=== PATIENT | female | born 1985 | race Caucasian/White ===

== ENCOUNTER 2022-04-24 18:06 | Emergency (ER) | payer SELFPAY ==
[2022-04-24 18:10] VITALS: BP 154/95; PULSE 86; RESP 18; TEMP 36.7; O2SAT 98; BMI 23.6
--- NOTE | 2022-04-24 18:18 | XRR_ITS ---
PROCEDURE INFORMATION: Exam: XR Chest Exam date and time: 04/24/2022 6:42 PM Age: 37 years old Clinical indication: Shortness of breath and other: Recent bronchitis TECHNIQUE: Imaging protocol: Radiologic exam of the chest. Views: 2 views. COMPARISON: No relevant prior studies available. FINDINGS: Lungs: Unremarkable. No consolidation. Pleural spaces: Unremarkable. No pleural effusion. No pneumothorax. Heart/Mediastinum: Unremarkable. No cardiomegaly. Bones/joints: Unremarkable. XR/XR chest 2V* [id number] IMPRESSION: No acute findings.
[2022-04-24] MEDS: albuterol 2.5 mg/3 mL Neb INHALATION (19:37)
[2022-04-24 19:38] VITALS: PULSE 94; RESP 20; O2SAT 98
[2022-04-24] MEDS: ketorolac 60 mg/2 mL INJ IM (19:53)
--- NOTE | 2022-04-24 20:09 | W.ED.SOB ---
HPI - SOB/Dyspnea General: Chief Complaint: Shortness of Breath/Dyspnea Stated Complaint: SOB\Chemical Burn with Bleach Time Seen by Provider: 04/24/22 18:18 History of Present Illness: HPI Narrative: Patient is in today for shortness of breath and chest pain with deep inspiration. Patient states that last week she was cleaning with bleach and comet and started coughing significantly. She did seek evaluation at [facility] and was diagnosed with bronchitis. She was started on antibiotic, steroid, albuterol inhaler. She reports that she still feeling short of breath and like it is tight when she breathes. She denies any fever, chills, nausea, vomiting. She denies hemoptysis. She denies any possibility of Associated symptoms: Reports chest pain (With deep inspiration and cough); Deny abdominal pain, fever(s), lightheadedness, nausea, palpitations, syncope or vomiting Review of Systems Const: Denies: fever(s), chills or body aches Eyes: Denies: change in vision or blurry vision ENMT: Denies: throat pain Card: Reports: chest pain (With deep inspiration and cough); Denies: palpitations, irregular heart rhythm, lightheadedness or syncope Resp: Reports: dyspnea, non-productive cough and pain on inspiration GI: Denies: abdominal pain, nausea or vomiting : Denies: flank pain, difficulty voiding, dysuria, urinary frequency, urinary urgency or urinary hesitancy Musc: Denies: neck pain or back pain Neuro: Denies: headache(s), numbness in extremities or weakness in extremities Physical Exam Const: COMMON NORMALS: no acute distress, patient oriented x3 and alert GENERAL APPEARANCE: cooperative ORIENTATION/CONSCIOUSNESS: Yes awake, Yes oriented to person, Yes oriented to place and Yes oriented to time HENMT: COMMON NORMALS: EAC's normal EXTERNAL AUDITORY CANAL: EAC's normal TYMPANIC MEMBRANE: TM normal on the left, TM abnormal TM laterality: right and unable to visualize TM (Due to cerumen) MOUTH: Normal oral and palatal mucosa present THROAT: posterior oropharynx normal Eye: COMMON NORMALS: Equal, round and reactive pupils present, EOMs intact bilaterally and conjunctivae normal GENERAL EYE: appearance normal, both eyes and all related structures ALIGNMENT: Yes alignment normal CONJUNCTIVA: Yes conjunctivae normal SCLERA: sclerae normal PUPIL: Yes Equal, round and reactive pupils present Neck/C-Spine: COMMON NORMALS: full ROM Resp: COMMON NORMALS: normal respiratory effort, No retractions, No use of accessory muscles and clear to auscultation bilaterally EFFORT & INSPECTION: Yes symmetric chest movement AUSCULTATION: clear to auscultation bilaterally Cardio: COMMON NORMALS: regular rate, regular rhythm, S1 normal heart sound present and S2 normal heart sound present RATE: regular rate RHYTHM: regular rhythm HEART SOUNDS: S1 normal heart sound present and S2 normal heart sound present GI: COMMON NORMALS: Normal to inspection, nondistended, normoactive bowel sounds present, Soft to palpation, non-tender, No hepatosplenomegaly present, no masses and no bruits INSPECTION: Yes normal to inspection PALPATION: Yes Soft to palpation and Yes No hepatosplenomegaly present : COMMON NORMALS: Yes no CVA tenderness BLADDER/KIDNEY EXAM: Yes no CVA tenderness Back/Pelvis: COMMON NORMALS: no CVA tenderness Neuro: COMMON NORMALS: patient oriented x3 SENSORIUM/ORIENTATION: Yes alert, Yes oriented to person, Yes oriented to place and Yes oriented to time Psych: COMMON NORMALS: cooperative OTHER: Patient is anxious Course Vital Signs: Vital signs: Vital Signs Temperature 98.0 F 04/24/22 18:10 Pulse Rate 94 04/24/22 19:38 Respiratory Rate 20 H 04/24/22 19:38 Blood Pressure 154/95 04/24/22 18:10 Pulse Oximetry 98 04/24/22 19:38 Oxygen Delivery Me thod 04/24/22 18:10 MDM - SOB/Dyspnea Medical Decision Making Patient is in today for shortness of breath and dyspnea since cleaning with bleach and common a week ago. Patient has been on steroids and antibiotics with albuterol inhaler but does not feel any improvement. She complains of chest pain with deep inspiration and cough. Patient does have scattered expiratory wheezes on physical examination. Albuterol nebulized treatment is ordered. Chest x-ray shows no acute cardiopulmonary findings. Toradol is administered x1 dose to help with inflammation. Discussed conservative treatment at home and typical course of illness with bronchitis. Follow-up with primary care provider. Return to the ER as needed for any new or worsening symptoms. Lab Data Labs/Radiology: Radiology Impressions Chest X-Ray 04/24/22 18:18 IMPRESSION: No acute findings. Discharge Plan Discharge Patient Disposition: Home Clinical Impression: Bronchitis, Pleuritic chest pain Condition: Stable Discharge Orders: Discharge ED (Routine); Ordered 04/24/22 Ordered By: Rebekah Kunz Discharge Diet: Usual diet Discharge Activity: Increase activity as tolerated Patient Instructions: Acute Bronchitis (ED) Activity Restrictions/Additional Instructions: Continue medications previously prescribed. Use albuterol inhaler every 4-6 hours as needed for coughing, shortness of breath, wheezing. Follow-up with your primary care provider next week for reevaluation. Return to the ER for any new or worsening symptoms. Stand Alone Forms: Work/School Release Coding Level of Care Code ED Supervisor Counseling And Guidance for [facility]
--- NOTE | 2022-04-25 15:27 | PC.SOCIAL ---
Addendum entered by Natalie Ramírez 04/28/22 13:16: digital communications manager called patient due to no primary care physician - no answer at this time. Original Note: PCP Appt Attempted to reach patient to offer PCP, patient did not answer.
== END 2022-04-24 20:24 | disposition home or self-care (01) ==
PROVIDERS: Emergency Provider Nurse Practitioner Family
DX: J40 Bronchitis, not specified as acute or chronic (principal); R09.1 Pleurisy
CPT/HCPCS: 71046; 94640; 96372; 99284; J1885; J7613

== ENCOUNTER → 2022-09-22 09:17 | Outpatient (BNVA) | payer SELFPAY | PROVIDERS: Visit Provider Nurse Practitioner Family | DX: R07.9 Chest pain, unspecified (principal) | CPT/HCPCS: 71046 ==